=== PATIENT | female | born 1995 | race Caucasian/White ===

== ENCOUNTER 2016-11-04 17:33 | Emergency (ER) | payer MEDICAID ==
[~2016-11-04] VITALS: Ht 160 cm; Wt 47.6 kg
[2016-11-04 17:50] VITALS: BP 101/68; PULSE 124; RESP 18; TEMP 98.6; O2SAT 100
[2016-11-04] MEDS ORDERED: CEPHALEXIN 500 MG CAPSULE PO ONE (20:30)
[2016-11-04] MEDS ORDERED: SULFAMETHOXAZOLE/TRIMETHOPR DS 1 TABLET PO ONE (20:30)
[2016-11-04 20:45] VITALS: BP 113/71; PULSE 111; RESP 18; TEMP 98.7; O2SAT 100
== END 2016-11-04 20:45 | disposition home or self-care (01) ==
LOC: SED 17:33
DX: L02.415 Cutaneous abscess of right lower limb (principal)
CPT/HCPCS: 99283